=== PATIENT | male | born 1950 | race Caucasian/White ===

== ENCOUNTER 2018-02-15 05:13 | Inpatient (IN) | payer MEDICARE, OTHER ==
[~2018-02-15] VITALS: Ht 172.7 cm; Wt 114.4 kg
[~2018-02-15 05:13] MED LIST: ALLERGY10 MG PO; ASCO500; NAPR220 PO; Nifedical Xl30 MG PO
[2018-02-15 05:59] LABS: BASOPHILS ABSOLUTE AUTO 0.05 K/mm3 (0.00-0.23); BASOPHILS PERCENT AUTO 1 % (0-2); EOSINOPHILS ABSOLUTE AUTO 0.19 K/mm3 (0.00-0.68); EOSINOPHILS PERCENT AUTO 2 % (0-6); Hematocrit 45.8 % (37.0-53.0); Hemoglobin 15.2 g/dL (13.5-17.5); IMMATURE GRAN ABSOLUTE AUTO 0.07 K/mm3 (0.00-0.10); IMMATURE GRAN PERCENT AUTO 1 % (0-1); LYMPHOCYTES ABSOLUTE AUTO 2.18 K/mm3 (0.84-5.20); LYMPHOCYTES PERCENT AUTO 20 % (21-46); MONOCYTES ABSOLUTE AUTO 0.96 K/mm3 (0.16-1.47); MONOCYTES PERCENT AUTO 9 % (4-13); Mean Corpuscular HGB 29.6 pg (26.0-34.0); Mean Corpuscular HGB Conc 33.2 g/dL (31.5-36.5); Mean Corpuscular Volume 89 fL (80-100); Mean Platelet Volume 10.3 fL (9.1-12.4); NEUTROPHILS ABSOLUTE AUTO 7.62 K/mm3 (1.96-9.15); NEUTROPHILS PERCENT AUTO 69 % (41-73); Platelet Count 227 K/mm3 (150-400); RDW Standard Deviation 42.5 fL (35.1-46.3); Red Blood Cell Count 5.13 M/mm3 (4.30-5.90); White Blood Cell Count 11.07 K/mm3 (4.00-11.30)
[2018-02-15 06:19] LABS: Alanine Aminotransfer (ALT/SGP 35 U/L (12-78); Albumin, Blood 3.5 g/dL (3.4-5.0); Albumin/Globulin Ratio 0.9 (0.8-1.8); Alk Phos 58 U/L (50-136); Anion Gap 9 mmol/L (6-16); Aspartate Aminotrans (AST/SGOT 22 U/L (12-37); Bilirubin, Total 0.8 mg/dL (0.1-1.0); Blood Urea Nitrogen 14 mg/dL (8-24); Bun/Creatinine Ratio 17.4 (12.0-20.0); CO2, Blood 26 mmol/L (21-32); Calcium, Blood 9.5 mg/dL (8.5-10.1); Chloride, Blood 106 mmol/L (98-108); Globulin, Blood 4.1 g/dL (2.2-4.0); Glomerular Filtration Rate >60 (60-); Glucose, Blood 109 mg/dL (70-99); Potassium, Blood 4.2 mmol/L (3.5-5.5); Sodium, Blood 141 mmol/L (136-145); Total Protein, Blood 7.6 g/dL (6.4-8.2); Troponin I <0.015 ng/mL (0.000-0.040)
[2018-02-15 09:44] LABS: International Normalized Ratio 1.14; Prothrombin Time Results 11.7 Sec (9.7-11.5)
[2018-02-15 10:30] LABS: International Normalized Ratio 1.11; Prothrombin Time Results 11.4 Sec (9.7-11.5)
[2018-02-16 03:44] LABS: BASOPHILS ABSOLUTE AUTO 0.06 K/mm3 (0.00-0.23); BASOPHILS PERCENT AUTO 1 % (0-2); EOSINOPHILS ABSOLUTE AUTO 0.28 K/mm3 (0.00-0.68); EOSINOPHILS PERCENT AUTO 3 % (0-6); Hematocrit 42.4 % (37.0-53.0); Hemoglobin 13.7 g/dL (13.5-17.5); IMMATURE GRAN ABSOLUTE AUTO 0.05 K/mm3 (0.00-0.10); IMMATURE GRAN PERCENT AUTO 1 % (0-1); LYMPHOCYTES ABSOLUTE AUTO 2.54 K/mm3 (0.84-5.20); LYMPHOCYTES PERCENT AUTO 24 % (21-46); MONOCYTES ABSOLUTE AUTO 1.03 K/mm3 (0.16-1.47); MONOCYTES PERCENT AUTO 10 % (4-13); Mean Corpuscular HGB 29.9 pg (26.0-34.0); Mean Corpuscular HGB Conc 32.3 g/dL (31.5-36.5); Mean Platelet Volume 10.5 fL (9.1-12.4); NEUTROPHILS ABSOLUTE AUTO 6.75 K/mm3 (1.96-9.15); NEUTROPHILS PERCENT AUTO 63 % (41-73); Platelet Count 226 K/mm3 (150-400); RDW Coefficient Variation 13.3 % (11.7-14.2); RDW Standard Deviation 45.5 fL (35.1-46.3); Red Blood Cell Count 4.58 M/mm3 (4.30-5.90); White Blood Cell Count 10.71 K/mm3 (4.00-11.30)
[2018-02-16 03:46] LABS: Mean Corpuscular Volume 93 fL (80-100)
[2018-02-16 04:09] LABS: Magnesium, Blood 2.1 mg/dL (1.6-2.4)
[2018-02-16 04:10] LABS: Alanine Aminotransfer (ALT/SGP 28 U/L (12-78); Albumin/Globulin Ratio 0.8 (0.8-1.8); Alk Phos 52 U/L (50-136); Anion Gap 6 mmol/L (6-16); Aspartate Aminotrans (AST/SGOT 18 U/L (12-37); Bilirubin, Total 0.7 mg/dL (0.1-1.0); Blood Urea Nitrogen 15 mg/dL (8-24); Bun/Creatinine Ratio 15.6 (12.0-20.0); CHOL/HDL RATIO 4.2; CO2, Blood 29 mmol/L (21-32); Calcium, Blood 8.8 mg/dL (8.5-10.1); Chloride, Blood 103 mmol/L (98-108); Cholesterol 164 mg/dL (50-200); Creatinine, Blood 0.96 mg/dL (0.60-1.20); Globulin, Blood 3.9 g/dL (2.2-4.0); Glomerular Filtration Rate >60 (60-); Glucose, Blood 113 mg/dL (70-99); HDL Cholesterol 39 mg/dL (>39); LDL/HDL RATIO 2.6; Low Density Lipoprotein Chol 102 mg/dL (0-110); Potassium, Blood 4.6 mmol/L (3.5-5.5); Sodium, Blood 138 mmol/L (136-145); Total Protein, Blood 6.9 g/dL (6.4-8.2); Triglycerides 116 mg/dL (30-160); Very Low Density Lipoprot Chol 23 mg/dL (6-32)
[2018-02-17 04:20] LABS: BASOPHILS ABSOLUTE AUTO 0.05 K/mm3 (0.00-0.23); BASOPHILS PERCENT AUTO 1 % (0-2); EOSINOPHILS ABSOLUTE AUTO 0.24 K/mm3 (0.00-0.68); EOSINOPHILS PERCENT AUTO 2 % (0-6); Hematocrit 42.2 % (37.0-53.0); Hemoglobin 13.7 g/dL (13.5-17.5); IMMATURE GRAN ABSOLUTE AUTO 0.06 K/mm3 (0.00-0.10); IMMATURE GRAN PERCENT AUTO 1 % (0-1); LYMPHOCYTES ABSOLUTE AUTO 2.22 K/mm3 (0.84-5.20); LYMPHOCYTES PERCENT AUTO 21 % (21-46); MONOCYTES PERCENT AUTO 10 % (4-13); Mean Corpuscular HGB 29.3 pg (26.0-34.0); Mean Corpuscular HGB Conc 32.5 g/dL (31.5-36.5); Mean Platelet Volume 10.2 fL (9.1-12.4); NEUTROPHILS ABSOLUTE AUTO 6.84 K/mm3 (1.96-9.15); NEUTROPHILS PERCENT AUTO 66 % (41-73); Platelet Count 228 K/mm3 (150-400); RDW Coefficient Variation 13.2 % (11.7-14.2); RDW Standard Deviation 43.6 fL (35.1-46.3); Red Blood Cell Count 4.67 M/mm3 (4.30-5.90); White Blood Cell Count 10.41 K/mm3 (4.00-11.30)
[2018-02-17 04:26] LABS: Mean Corpuscular Volume 90 fL (80-100)
[2018-02-18 04:41] LABS: BASOPHILS ABSOLUTE AUTO 0.03 K/mm3 (0.00-0.23); BASOPHILS PERCENT AUTO 0 % (0-2); EOSINOPHILS PERCENT AUTO 3 % (0-6); Hematocrit 44.1 % (37.0-53.0); Hemoglobin 14.4 g/dL (13.5-17.5); IMMATURE GRAN ABSOLUTE AUTO 0.05 K/mm3 (0.00-0.10); IMMATURE GRAN PERCENT AUTO 1 % (0-1); LYMPHOCYTES ABSOLUTE AUTO 1.78 K/mm3 (0.84-5.20); LYMPHOCYTES PERCENT AUTO 18 % (21-46); MONOCYTES ABSOLUTE AUTO 0.95 K/mm3 (0.16-1.47); MONOCYTES PERCENT AUTO 10 % (4-13); Mean Corpuscular HGB 29.2 pg (26.0-34.0); Mean Corpuscular HGB Conc 32.7 g/dL (31.5-36.5); Mean Corpuscular Volume 90 fL (80-100); Mean Platelet Volume 10.1 fL (9.1-12.4); NEUTROPHILS ABSOLUTE AUTO 6.63 K/mm3 (1.96-9.15); NEUTROPHILS PERCENT AUTO 68 % (41-73); Platelet Count 264 K/mm3 (150-400); RDW Coefficient Variation 12.9 % (11.7-14.2); RDW Standard Deviation 42.4 fL (35.1-46.3); Red Blood Cell Count 4.93 M/mm3 (4.30-5.90); White Blood Cell Count 9.74 K/mm3 (4.00-11.30)
[2018-02-18 05:04] LABS: Alanine Aminotransfer (ALT/SGP 25 U/L (12-78); Albumin, Blood 2.9 g/dL (3.4-5.0); Albumin/Globulin Ratio 0.6 (0.8-1.8); Alk Phos 55 U/L (50-136); Anion Gap 8 mmol/L (6-16); Aspartate Aminotrans (AST/SGOT 19 U/L (12-37); Bilirubin, Total 0.9 mg/dL (0.1-1.0); Blood Urea Nitrogen 14 mg/dL (8-24); Bun/Creatinine Ratio 16.3 (12.0-20.0); CO2, Blood 27 mmol/L (21-32); Calcium, Blood 9.4 mg/dL (8.5-10.1); Chloride, Blood 101 mmol/L (98-108); Creatinine, Blood 0.86 mg/dL (0.60-1.20); Globulin, Blood 4.8 g/dL (2.2-4.0); Glomerular Filtration Rate >60 (60-); Glucose, Blood 105 mg/dL (70-99); Potassium, Blood 4.5 mmol/L (3.5-5.5); Sodium, Blood 136 mmol/L (136-145); Total Protein, Blood 7.7 g/dL (6.4-8.2)
[2018-02-19] MEDS ORDERED: LIDO700A20 TOP (09:49)
[2018-02-19] MEDS ORDERED: LOSA25 PO (09:50)
[2018-02-19] MEDS ORDERED: TYLENOL325 MG PO (09:51)
[2018-02-19] MEDS ORDERED: XARELTO15 MG PO (09:51)
== END 2018-02-19 10:38 | disposition home or self-care (01) | DRG 299 ==
LOC: ER 05:13 → PCU 09:07
PROVIDERS: Emergency Medicine; Internal Medicine
DX: I82.432 Acute embolism and thrombosis of left popliteal vein (principal); I26.92 Saddle embolus of pulmonary artery without acute cor pulmonale; I10 Essential (primary) hypertension; M17.11 Unilateral primary osteoarthritis, right knee; Z74.09 Other reduced mobility; E66.9 Obesity, unspecified; Z68.38 Body mass index [BMI] 38.0-38.9, adult
CPT/HCPCS: 36415; 71046; 71260; 80053; 80061; 83690; 83735; 84443; 84484; 85025; 85610; 85730; 93005; 93010; 93306; 93970; 94762; 96374; 96375; 96376; 97110; 97161; 97165; 97530; 97535; 99285-25; G8978; G8979; G8980; G8987; G8988; G8989; J1644; J1885; J2405; J3010; Q9967

== ENCOUNTER 2019-03-16 06:49 | Day surgery (SDC) | payer MEDICARE, OTHER ==
[~2019-03-16] VITALS: Ht 167.6 cm; Wt 120.0 kg
[~2019-03-16 06:49] MED LIST changes: +AMLO10 PO; +ASPI325 PO; +B-125000 MC1 PO; +LIDO700A20 TOP; +LOSA25 PO; +METO25 PO; +NIFEDICAL XL PO; +TYLENOL325 MG PO; +VENTOLIN HFA INH; +XARELTO15 MG PO
[2019-03-16] MEDS ORDERED: METO25 PO (09:41)
[2019-03-16] MEDS ORDERED: ATOR40TA PO (09:41)
--- NOTE | 2019-03-16 12:19 | NUR ---
PT DISCHARGE INSTRUCTIONS GONE OVER WITH PT. PT VERBALIZED UNDERSTANDING ALONG WITH . PT DISCHARGED PER W/C TO PRIVATE VEHICLE.
== END 2019-03-16 12:15 | disposition home or self-care (01) ==
LOC: MHTC 06:49
DX: I25.118 Atherosclerotic heart disease of native coronary artery with other forms of angina pectoris (principal); I10 Essential (primary) hypertension; M19.90 Unspecified osteoarthritis, unspecified site; I77.819 Aortic ectasia, unspecified site
CPT/HCPCS: 85347; 93458; 99152; 99153; C1769; C1894; J1644; J2250; J3010; J7030; Q9967

== ENCOUNTER 2019-05-17 08:31 | Emergency (ER) | payer MEDICARE, OTHER ==
[~2019-05-17] VITALS: Ht 172.7 cm; Wt 114.3 kg
[~2019-05-17 08:31] MED LIST changes: +ATOR40TA PO
== END 2019-05-17 10:39 | disposition home or self-care (01) ==
LOC: ER 08:31
DX: M96.842 Postprocedural seroma of a musculoskeletal structure following a musculoskeletal system procedure (principal); I10 Essential (primary) hypertension; Z86.718 Personal history of other venous thrombosis and embolism; Z86.711 Personal history of pulmonary embolism; Z79.899 Other long term (current) drug therapy; Z79.82 Long term (current) use of aspirin
CPT/HCPCS: 93971; 99283-25

== ENCOUNTER 2020-05-18 09:31 | Emergency (ER) | payer MEDICARE, OTHER ==
[~2020-05-18] VITALS: Ht 172.7 cm; Wt 113.4 kg
[2020-05-18] MEDS ORDERED: EVOLOCUMAB (10:19)
[2020-05-18] MEDS ORDERED: Aspir 8181 MG PO (10:20)
== END 2020-05-18 13:35 | disposition home or self-care (01) ==
LOC: ER 09:31
DX: M25.561 Pain in right knee (principal); I10 Essential (primary) hypertension; Z79.82 Long term (current) use of aspirin; Z79.899 Other long term (current) drug therapy; Z86.711 Personal history of pulmonary embolism; Z95.1 Presence of aortocoronary bypass graft; Z86.718 Personal history of other venous thrombosis and embolism
CPT/HCPCS: 73562-RT; 93971; 99284-25

== ENCOUNTER → 2020-07-09 | Outpatient (CLI) | payer MEDICARE, OTHER ==
[~2020-07-09] MED LIST changes: +Aspir 8181 MG PO; +EVOLOCUMAB
== END | disposition home or self-care (01) ==
LOC: PLD 14:18 → LAB SHORT 14:18
DX: D48.5 Neoplasm of uncertain behavior of skin (principal)
CPT/HCPCS: 88305

== ENCOUNTER 2021-07-20 06:26 | Observation (INO) | payer MEDICARE, OTHER ==
[~2021-07-20] VITALS: Ht 172.7 cm; Wt 116.3 kg
[~2021-07-20 06:26] MED LIST changes: +ADALAT CC30 M1 PO; +METO100ER PO; -NIFEDICAL XL PO
[2021-07-20 07:00] LABS: BASOPHILS ABSOLUTE AUTO 0.07 K/mm3 (0.00-0.23); BASOPHILS PERCENT AUTO 1 % (0-2); EOSINOPHILS ABSOLUTE AUTO 0.26 K/mm3 (0.00-0.68); EOSINOPHILS PERCENT AUTO 3 % (0-6); Hematocrit 45.5 % (37.0-53.0); Hemoglobin 15.4 g/dL (13.5-17.5); IMMATURE GRAN ABSOLUTE AUTO 0.03 K/mm3 (0.00-0.10); IMMATURE GRAN PERCENT AUTO 0 % (0-1); LYMPHOCYTES ABSOLUTE AUTO 1.86 K/mm3 (0.84-5.20); LYMPHOCYTES PERCENT AUTO 19 % (21-46); MONOCYTES ABSOLUTE AUTO 0.79 K/mm3 (0.16-1.47); MONOCYTES PERCENT AUTO 8 % (4-13); Mean Corpuscular HGB 30.3 pg (26.0-34.0); Mean Corpuscular HGB Conc 33.8 g/dL (31.5-36.5); Mean Corpuscular Volume 90 fL (80-100); Mean Platelet Volume 10.8 fL (9.1-12.4); NEUTROPHILS ABSOLUTE AUTO 6.77 K/mm3 (1.96-9.15); NEUTROPHILS PERCENT AUTO 69 % (41-73); Platelet Count 207 K/mm3 (150-400); RDW Standard Deviation 42.8 fL (35.1-46.3); Red Blood Cell Count 5.08 M/mm3 (4.30-5.90); White Blood Cell Count 9.78 K/mm3 (4.00-11.30)
[2021-07-20] MEDS ORDERED: DOCU100 PO (07:07)
[2021-07-20] MEDS ORDERED: NITR.4SL SL (07:08)
[2021-07-20] MEDS ORDERED: Isosorbide Mono30 MG PO (07:08)
[2021-07-20] MEDS ORDERED: PANT40 PO (07:08)
[2021-07-20 07:28] LABS: Alanine Aminotransfer (ALT/SGP 31 U/L (12-78); Albumin, Blood 3.7 g/dL (3.4-5.0); Albumin/Globulin Ratio 0.9 (0.8-1.8); Alk Phos 52 U/L (50-136); Anion Gap 6 mmol/L (6-16); Aspartate Aminotrans (AST/SGOT 25 U/L (12-37); Bilirubin, Total 0.9 mg/dL (0.1-1.0); Blood Urea Nitrogen 14 mg/dL (8-24); Bun/Creatinine Ratio 16.9 (12.0-20.0); CO2, Blood 27 mmol/L (21-32); Calcium, Blood 9.7 mg/dL (8.5-10.1); Chloride, Blood 106 mmol/L (98-108); Creatinine, Blood 0.83 mg/dL (0.60-1.20); Glomerular Filtration Rate >60 (60-); Glucose, Blood 119 mg/dL (70-99); Potassium, Blood 4.2 mmol/L (3.5-5.5); Sodium, Blood 139 mmol/L (136-145); Total Protein, Blood 7.7 g/dL (6.4-8.2); Troponin I <0.015 ng/mL (0.000-0.040)
--- NOTE | 2021-07-20 16:00 | NUR ---
SHIFT SUMMARY THE PATIENT WAS ADMITTED AT 1145 THIS SHIFT. THE PATIENT IS ALERT AND ORIENTED X4, PLEASANT AND COOPERATIVE WITH CARE. THE PATIENT IS ON RA. ON TELE RUNNING SINUS RHYTHM IN THE 80'S. THE PATIENT IS ON A CLEAR LIQUID DIET. 20GAUGE IV IN LEFT AC. MEDS WHOLE WITH WATER. PLAN IS FOR PATIENT TO POSSIBLY HAVE A STRESS TEST DONE. VSS. NO CHEST PAIN AT THIS TIME. WILL CONTINUE TO CARE FOR THE PATIENT UNTIL SHIFT REPORT IS GIVEN TO ONCOMING NURSE.
--- NOTE | 2021-07-21 06:30 | NUR ---
SHIFT SUMMRAY PT IS A 71 Y/O MALE, ADMITTED FOR CP. HE IS A&O X 4, INDEPENDENT IN THE ROOM. PT DENIED ANY C/O CHEST PAIN OR PRESSURE, NAUSEA OR SOB. VITAL SIGNS STABLE. TELE SHOWED NSR C PVC @ 95. NO ACUTE CHANGES IN PT CONDITION NOTED DURING THE NIGHT. WILL CONTINUE TO MONITOR AND TREAT PER EMAR UNTIL HAND OFF TO DAY SHIFT RN.
[2021-07-21 08:55] LABS: CHOL/HDL RATIO 3.1; Cholesterol 132 mg/dL (50-200); HDL Cholesterol 43 mg/dL (>39); LDL/HDL RATIO 1.5; Low Density Lipoprotein Chol 64 mg/dL (0-110); Triglycerides 127 mg/dL (30-160); Very Low Density Lipoprot Chol 25 mg/dL (6-32)
--- NOTE | 2021-07-21 17:16 | NUR ---
SHIFT SUMMARY PATIENT IS ALERT AND ORIENTED X4, PLEASANT AND COOPERATIVE WITH CARE. THE PATIENT HAD THE FIRST PART OF THE STRESS TEST DONE TODAY. THE SECOND PART WILL TAKE PLACE TOMORROW AFTERNOON. NO CAFFEINE AFTER DINNER. HOLD LUNCH TRAY UNTIL AFTER TEST. PATIENT'S ISOSOBRIDE WILL BE HELD IN THE AM DUE TO TEST. PATIENT IS INDEPENDENT IN THE ROOM. NO ACUTE CHANGES THIS SHIFT. CALL LIGHT WITHIN REACH.
--- NOTE | 2021-07-22 06:55 | NUR ---
SHIFT SUMMARY PT IS A 71 Y/O MALE, ADMITTED FOR CHEST PAIN. HE IS A&O X 4, INDEPENDENT IN THE ROOM. NO C/O CHEST PAIN, NAUSEA OR SOB. VITAL SIGNS STABLE. TELE SHOWED NSR C PVC @ 80. NO ACUTE CHANGES IN PT CONDITION NOTED DURING THE NIGHT. WILL CONTINUE TO MONITOR AND TREAT PER EMAR UNTIL HAND OFF TO DAY SHIFT RN.
[2021-07-22] MEDS ORDERED: REPATHA SU140 MG/1 M SC (17:28)
[2021-07-22] MEDS ORDERED: PANT40 PO (18:05)
--- NOTE | 2021-07-22 18:38 | NUR ---
PT GIVEN DC INSTRUCTIONS. STRESS TEST NEGATIVE- AWAITING RIDE HOME [id number] REPORT TO JOSE RAMIREZ.
== END 2021-07-22 19:04 | disposition home or self-care (01) ==
LOC: ER 06:26 → MEDS 06:27
PROVIDERS: Emergency Medicine; Internal Medicine; ADMIT Internal Medicine
DX: R07.89 Other chest pain (principal); I10 Essential (primary) hypertension; I25.10 Atherosclerotic heart disease of native coronary artery without angina pectoris; E66.01 Morbid (severe) obesity due to excess calories; E88.81 Metabolic syndrome and other insulin resistance; K21.9 Gastro-esophageal reflux disease without esophagitis; K76.0 Fatty (change of) liver, not elsewhere classified; K80.20 Calculus of gallbladder without cholecystitis without obstruction; Z79.82 Long term (current) use of aspirin; Z86.718 Personal history of other venous thrombosis and embolism; Z86.711 Personal history of pulmonary embolism; Z95.1 Presence of aortocoronary bypass graft; Z68.38 Body mass index [BMI] 38.0-38.9, adult
CPT/HCPCS: 36415; 71045; 76705; 78452; 80053; 80061; 83036; 83880; 84484; 85025; 85379; 93005; 93010; 93017; 93970; 96372; 99285-25; A9270; A9500; G0378; J0706; J1650; J2785

== ENCOUNTER 2022-05-14 07:22 | Day surgery (SDC) | payer MEDICARE, OTHER ==
[~2022-05-14] VITALS: Ht 172.7 cm; Wt 115.1 kg
[~2022-05-14 07:22] MED LIST changes: +DOCU100 PO; +Isosorbide Mono30 MG PO; +NITR.4SL SL; +PANT40 PO; +REPATHA SU140 MG/1 M SC
--- NOTE | 2022-05-14 10:43 | NUR ---
05/14/22 [email or web address] [place] CONFIRMED PT'S TRAMADOL PERSCRIPTION HAD BEEN SENT THERE. PT WAS INFORMED.
== END 2022-05-14 10:15 | disposition home or self-care (01) ==
LOC: ORSCSDS 07:22
PROVIDERS: Orthopaedic Surgery
PROC: 01N50ZZ Release Median Nerve, Open Approach (ICD-10-PCS; principal; 2022-05-14 08:45)
DX: G56.01 Carpal tunnel syndrome, right upper limb (principal); I10 Essential (primary) hypertension; I25.2 Old myocardial infarction; I25.10 Atherosclerotic heart disease of native coronary artery without angina pectoris; G47.33 Obstructive sleep apnea (adult) (pediatric); Z79.82 Long term (current) use of aspirin
CPT/HCPCS: J2250; J3010; J7120

== ENCOUNTER 2023-03-20 07:13 | Day surgery (SDC) | payer MEDICARE, OTHER | END 2023-03-20 22:50 | disposition home or self-care (01) | LOC: CT 07:13 | DX: I25.118 Atherosclerotic heart disease of native coronary artery with other forms of angina pectoris (principal); Z95.1 Presence of aortocoronary bypass graft; I71.21 Aneurysm of the ascending aorta, without rupture; R06.00 Dyspnea, unspecified | CPT/HCPCS: 75574; Q9967 ==

== ENCOUNTER 2023-12-24 06:01 | Emergency (ER) | payer OTHER ==
[~2023-12-24] VITALS: Ht 172.7 cm; Wt 117.9 kg
[2023-12-24] MEDS ORDERED: NIFE30ER PO (06:34)
[2023-12-24] MEDS ORDERED: ISOSORBIDE MONO30 MG PO (06:36)
[2023-12-24] MEDS ORDERED: PANTOPRAZOLE SO40 M2 PO (06:36)
[2023-12-24] MEDS ORDERED: FUROSEMIDE20 MG PO (06:36)
[2023-12-24] MEDS ORDERED: MELO7.5 PO (06:37)
[2023-12-24] MEDS ORDERED: CARVEDILOL25 M9 PO (06:37)
[2023-12-24] MEDS ORDERED: Cyclobenzaprine5 MG PO (06:38)
[2023-12-24] MEDS ORDERED: K-Dur10 MEQ (06:39)
[2023-12-24] MEDS ORDERED: METO2.5 PO (06:39)
[2023-12-24 06:43] LABS: BASOPHILS ABSOLUTE AUTO 0.07 K/mm3 (0.00-0.23); BASOPHILS PERCENT AUTO 1 % (0-2); EOSINOPHILS ABSOLUTE AUTO 0.13 K/mm3 (0.00-0.68); EOSINOPHILS PERCENT AUTO 1 % (0-6); Hematocrit 44.6 % (37.0-53.0); Hemoglobin 15.4 g/dL (13.5-17.5); IMMATURE GRAN ABSOLUTE AUTO 0.06 K/mm3 (0.00-0.10); IMMATURE GRAN PERCENT AUTO 1 % (0-1); LYMPHOCYTES ABSOLUTE AUTO 1.54 K/mm3 (0.84-5.20); LYMPHOCYTES PERCENT AUTO 14 % (21-46); MONOCYTES ABSOLUTE AUTO 0.66 K/mm3 (0.16-1.47); MONOCYTES PERCENT AUTO 6 % (4-13); Mean Corpuscular HGB 30.2 pg (26.0-34.0); Mean Corpuscular HGB Conc 34.5 g/dL (31.5-36.5); Mean Corpuscular Volume 88 fL (80-100); Mean Platelet Volume 10.7 fL (9.1-12.4); NEUTROPHILS ABSOLUTE AUTO 8.97 K/mm3 (1.96-9.15); NEUTROPHILS PERCENT AUTO 79 % (41-73); Platelet Count 221 K/mm3 (150-400); RDW Coefficient Variation 12.9 % (11.7-14.2); RDW Standard Deviation 41.3 fL (35.1-46.3); White Blood Cell Count 11.43 K/mm3 (4.00-11.30)
[2023-12-24 06:58] LABS: Albumin, Blood 3.8 g/dL (3.4-5.0); Bilirubin, Total 0.5 mg/dL (0.1-1.0); Bun/Creatinine Ratio 19.7 (12.0-20.0); Calcium, Blood 10.5 mg/dL (8.5-10.1); Creatinine, Blood 0.81 mg/dL (0.60-1.20); Potassium, Blood 2.7 mmol/L (3.5-5.5); Total Protein, Blood 7.8 g/dL (6.4-8.2)
[2023-12-24] MEDS ORDERED: Potassium Chloride 20 MEQ TabCR PO ONE (07:15)
[2023-12-24] MEDS ORDERED: Ondansetron 4 MG SoluTab SL ONE (07:30)
[2023-12-24] MEDS ORDERED: NS 1,000 ML IV SCH (07:30)
[2023-12-24 07:39] LABS: Source, Urine Voided
[2023-12-24 07:43] LABS: Appearance, Urine Clear (Clear); Bilirubin, Urine Neg (Neg); Blood, Urine Neg (Neg); Color, Urine Yellow (P-Yellow); Glucose Qualitative, Urine Neg (Neg); Ketones, Urine Neg (Neg); Leukocyte Esterase, Urine Neg (Neg); Nitrite, Urine Neg (Neg); Protein, Urine Neg (Neg); Urobilinogen, Urine NORM (Normal)
[2023-12-24] MEDS ORDERED: Ondansetron 4 MG SoluTab MM ONE (09:00)
[2023-12-24 09:04] VITALS: BP 132/78
[2023-12-24] MEDS ORDERED: ONDA4ODT MM (09:08)
== END 2023-12-24 09:28 | disposition home or self-care (01) ==
LOC: ER 06:01
PROVIDERS: Family Medicine
DX: K80.70 Calculus of gallbladder and bile duct without cholecystitis without obstruction (principal); E87.6 Hypokalemia; I10 Essential (primary) hypertension; K21.9 Gastro-esophageal reflux disease without esophagitis; Z88.8 Allergy status to other drugs, medicaments and biological substances; Z88.5 Allergy status to narcotic agent; Z79.899 Other long term (current) drug therapy; Z79.82 Long term (current) use of aspirin
CPT/HCPCS: 76705; 80053; 81003; 83690; 84484; 85025; 93005; 93010; 99284-25; A9270; J7030

== ENCOUNTER 2023-12-26 09:55 | Inpatient (IN) | payer OTHER ==
[2023-12-26] VITALS (15 sets, daily range): BP systolic 91–113; BP diastolic 58–68
[~2023-12-26] VITALS: Ht 172.7 cm; Wt 117.9 kg
[~2023-12-26 09:55] MED LIST changes: +CARVEDILOL25 M9 PO; +Cyclobenzaprine5 MG PO; +FUROSEMIDE20 MG PO; +ISOSORBIDE MONO30 MG PO; +K-Dur10 MEQ; +MELO7.5 PO; +METO2.5 PO; +NIFE30ER PO; +ONDA4ODT MM; +PANTOPRAZOLE SO40 M2 PO
[2023-12-26 10:55] LABS: BASOPHILS ABSOLUTE AUTO 0.08 K/mm3 (0.00-0.23); BASOPHILS PERCENT AUTO 0 % (0-2); EOSINOPHILS PERCENT AUTO 0 % (0-6); Hematocrit 39.9 % (37.0-53.0); Hemoglobin 13.7 g/dL (13.5-17.5); IMMATURE GRAN ABSOLUTE AUTO 0.19 K/mm3 (0.00-0.10); IMMATURE GRAN PERCENT AUTO 1 % (0-1); LYMPHOCYTES ABSOLUTE AUTO 1.42 K/mm3 (0.84-5.20); LYMPHOCYTES PERCENT AUTO 7 % (21-46); MONOCYTES PERCENT AUTO 8 % (4-13); Mean Corpuscular HGB 30.4 pg (26.0-34.0); Mean Corpuscular HGB Conc 34.3 g/dL (31.5-36.5); Mean Corpuscular Volume 89 fL (80-100); Mean Platelet Volume 10.8 fL (9.1-12.4); NEUTROPHILS PERCENT AUTO 85 % (41-73); Platelet Count 187 K/mm3 (150-400); RDW Coefficient Variation 12.8 % (11.7-14.2); RDW Standard Deviation 42.1 fL (35.1-46.3); Red Blood Cell Count 4.51 M/mm3 (4.30-5.90); White Blood Cell Count 21.99 K/mm3 (4.00-11.30)
[2023-12-26] MEDS ORDERED: Morphine Sulfate 4 MG/1 ML Injection IV ONE (11:10)
[2023-12-26 11:13] LABS: Albumin, Blood 3.1 g/dL (3.4-5.0); Albumin/Globulin Ratio 0.7 (0.8-1.8); Bilirubin, Total 1.3 mg/dL (0.1-1.0); Bun/Creatinine Ratio 18.6 (12.0-20.0); Calcium, Blood 9.4 mg/dL (8.5-10.1); Creatinine, Blood 1.13 mg/dL (0.60-1.20); Globulin, Blood 4.2 g/dL (2.2-4.0); Potassium, Blood 3.1 mmol/L (3.5-5.5); Total Protein, Blood 7.3 g/dL (6.4-8.2)
[2023-12-26] MEDS ORDERED: Piperacillin/Tazobactam Sod 4.5 GM in NS 100 ML IV ONE (12:25)
[2023-12-26] MEDS ORDERED: Lactated Ringer's 1,000 ML IV ONE (13:50)
[2023-12-26] MEDS ORDERED: FentaNYL Citrate 50 MCG/ML 2 ML Injection IV PRN (13:50)
[2023-12-26] MEDS ORDERED: Cyclobenzaprine HCl 10 MG Tab PO PRN (13:50)
[2023-12-26] MEDS ORDERED: Ondansetron HCl 2 MG / ML 2ML Vial IV PRN (13:50)
[2023-12-26] MEDS ORDERED: Acetaminophen 325 MG TABLET PO PRN (13:50)
[2023-12-26] MEDS ORDERED: NS 1,000 ML IV SCH (13:50)
[2023-12-26] MEDS ORDERED: Nitroglycerin 0.4 MG SUBL SL PRN (13:55)
[2023-12-26] MEDS ORDERED: Ondansetron 4 MG SoluTab MM PRN (13:55)
[2023-12-26] MEDS ORDERED: Potassium Chloride 40 MEQ in NS 250 ML IV ONE (14:05)
[2023-12-26] MEDS ORDERED: Bupivacaine 0.5% HCl 5 MG/ML 30MLVIAL ONE (14:31)
[2023-12-26] MEDS ORDERED: Dexamethasone Sod Phos 10 MG/ML 1ML VIAL ONE (14:39)
[2023-12-26] MEDS ORDERED: Ondansetron HCl 2 MG / ML 2ML Vial ONE (14:39)
[2023-12-26] MEDS ORDERED: propofoL 20 ML IV ONE (14:39)
[2023-12-26] MEDS ORDERED: Rocuronium Bromide 10 MG/ML 5ML Injection IV ONE (14:39)
[2023-12-26] MEDS ORDERED: FentaNYL Citrate 50 MCG/ML 2 ML Injection ONE (14:40)
[2023-12-26] MEDS ORDERED: Sugammadex Sodium 200 MG/2ML SDV (100 MG/ML) ONE (15:08)
[2023-12-26] MEDS ORDERED: Morphine Sulfate 4 MG/1 ML Injection ONE ×2 (16:21→16:31)
[2023-12-26] MEDS ORDERED: Piperacillin/Tazobactam Sod 3.375 GM in NS 100 ML IV SCH (18:00)
--- NOTE | 2023-12-26 19:14 | NUR ---
SHIFT SUMMARY S/P LAP ENMA, LAP SITES, MARYBETH WITH RED BLOOD DC. A&OX4, VSS/RA, DANA PO CLD, VOIDING, REPOSITIONS SELF, DENIES PAIN, IVF/ABX AND KCL PER EMAR. WILL REPORT TO ONCOMING NOC RN.
[2023-12-26] MEDS ORDERED: Pantoprazole Sodium 40 MG Tab PO SCH (21:00)
[2023-12-26] MEDS ORDERED: Carvedilol 25 MG Tab PO SCH (21:00)
[2023-12-26] MEDS ORDERED: Meloxicam 7.5 MG Tab PO SCH (21:00)
[2023-12-26] MEDS ORDERED: Lactobacil 2-S.Thermo-Bifido 1 1 Cap PO SCH (21:00)
[2023-12-27 03:33] VITALS: BP 113/68
--- NOTE | 2023-12-27 04:21 | NUR ---
SHIFT SUMMARY POD1 ENMA, PT VOIDING APPROPRIATELY, MEDICATED FOR PAIN PRN W/ GOOD RESULTS, ABLE TO REST MOST OF SHIFT. STANDBY ASST AT BEDSIDE W/ URINAL. FLUIDS RUNNING AT ORDERED RATE, IV ABX GIVEN ORDERED. MARYBETH DRAIN IN PLACE DRAINING SANGUINEOUS FLUID. PT USING CALL LIGHT APPROPRIATELY.
[2023-12-27 05:19] LABS: BASOPHILS ABSOLUTE AUTO 0.02 K/mm3 (0.00-0.23); BASOPHILS PERCENT AUTO 0 % (0-2); EOSINOPHILS PERCENT AUTO 0 % (0-6); Hematocrit 35.9 % (37.0-53.0); Hemoglobin 12.3 g/dL (13.5-17.5); IMMATURE GRAN ABSOLUTE AUTO 0.17 K/mm3 (0.00-0.10); IMMATURE GRAN PERCENT AUTO 1 % (0-1); LYMPHOCYTES ABSOLUTE AUTO 0.94 K/mm3 (0.84-5.20); LYMPHOCYTES PERCENT AUTO 5 % (21-46); MONOCYTES ABSOLUTE AUTO 1.18 K/mm3 (0.16-1.47); MONOCYTES PERCENT AUTO 7 % (4-13); Mean Corpuscular HGB 30.4 pg (26.0-34.0); Mean Corpuscular HGB Conc 34.3 g/dL (31.5-36.5); Mean Corpuscular Volume 89 fL (80-100); NEUTROPHILS ABSOLUTE AUTO 15.11 K/mm3 (1.96-9.15); NEUTROPHILS PERCENT AUTO 87 % (41-73); Platelet Count 189 K/mm3 (150-400); RDW Coefficient Variation 12.6 % (11.7-14.2); RDW Standard Deviation 40.9 fL (35.1-46.3); Red Blood Cell Count 4.05 M/mm3 (4.30-5.90); White Blood Cell Count 17.42 K/mm3 (4.00-11.30)
[2023-12-27 05:46] LABS: Albumin, Blood 2.7 g/dL (3.4-5.0); Albumin/Globulin Ratio 0.7 (0.8-1.8); Bilirubin, Total 0.7 mg/dL (0.1-1.0); Bun/Creatinine Ratio 20.8 (12.0-20.0); Calcium, Blood 8.9 mg/dL (8.5-10.1); Creatinine, Blood 1.01 mg/dL (0.60-1.20); Potassium, Blood 3.3 mmol/L (3.5-5.5); Total Protein, Blood 6.7 g/dL (6.4-8.2)
[2023-12-27 07:31] VITALS: BP 120/68
[2023-12-27] MEDS ORDERED: OxyCODONE HCL 5 MG TAB PO PRN (08:55)
[2023-12-27] MEDS ORDERED: Isosorbide Mononitrate 60 MG TABCR PO SCH (09:00)
[2023-12-27] MEDS ORDERED: Enoxaparin 40 MG/0.4 ML SYR SC SCH (09:00)
[2023-12-27] MEDS ORDERED: Potassium Chloride 20 MEQ TabCR PO ONE ×2 (09:00→13:30)
[2023-12-27] MEDS ORDERED: NIFEdipine 30 MG TabCR PO SCH (09:00)
[2023-12-27] MEDS ORDERED: Aspirin 81 MG TabEC PO SCH (09:00)
[2023-12-27] MEDS ORDERED: HYDROcodone 5-APAP 325 TAB PO PRN (09:05)
[2023-12-27 14:33] VITALS: BP 100/59
--- NOTE | 2023-12-27 17:01 | NUR ---
SHIFT SUMMARY S/P LAP ENMA, LAP SITES, MARYBETH SSD, DENIES FLATUS/BM. A&OX4, VSS/RA, DANA PO REG DIET, VOIDING, AMB INDEPENDENTLY/DRESSED SELF, DENIES PAIN, IVF/ABX PER EMAR. WILL REPORT TO ONCOMING NOC RN.
[2023-12-27] MEDS ORDERED: NS 250 ML IV PRN (18:50)
[2023-12-27 19:29] VITALS: BP 109/68
[2023-12-28 04:33] LABS: BASOPHILS ABSOLUTE AUTO 0.04 K/mm3 (0.00-0.23); BASOPHILS PERCENT AUTO 0 % (0-2); EOSINOPHILS ABSOLUTE AUTO 0.01 K/mm3 (0.00-0.68); EOSINOPHILS PERCENT AUTO 0 % (0-6); Hematocrit 38.6 % (37.0-53.0); Hemoglobin 13.1 g/dL (13.5-17.5); IMMATURE GRAN ABSOLUTE AUTO 0.09 K/mm3 (0.00-0.10); IMMATURE GRAN PERCENT AUTO 1 % (0-1); LYMPHOCYTES ABSOLUTE AUTO 1.73 K/mm3 (0.84-5.20); LYMPHOCYTES PERCENT AUTO 11 % (21-46); MONOCYTES ABSOLUTE AUTO 1.12 K/mm3 (0.16-1.47); MONOCYTES PERCENT AUTO 7 % (4-13); Mean Corpuscular HGB 30.5 pg (26.0-34.0); Mean Corpuscular HGB Conc 33.9 g/dL (31.5-36.5); Mean Corpuscular Volume 90 fL (80-100); Mean Platelet Volume 10.7 fL (9.1-12.4); NEUTROPHILS ABSOLUTE AUTO 13.38 K/mm3 (1.96-9.15); NEUTROPHILS PERCENT AUTO 82 % (41-73); Platelet Count 227 K/mm3 (150-400); RDW Coefficient Variation 12.9 % (11.7-14.2); RDW Standard Deviation 42.4 fL (35.1-46.3); Red Blood Cell Count 4.29 M/mm3 (4.30-5.90); White Blood Cell Count 16.37 K/mm3 (4.00-11.30)
[2023-12-28 04:34] VITALS: BP 111/71
[2023-12-28 04:54] LABS: Albumin, Blood 2.7 g/dL (3.4-5.0); Albumin/Globulin Ratio 0.6 (0.8-1.8); Bilirubin, Total 0.4 mg/dL (0.1-1.0); Bun/Creatinine Ratio 27.1 (12.0-20.0); Calcium, Blood 9.7 mg/dL (8.5-10.1); Creatinine, Blood 0.85 mg/dL (0.60-1.20); Globulin, Blood 4.3 g/dL (2.2-4.0); Potassium, Blood 3.6 mmol/L (3.5-5.5)
--- NOTE | 2023-12-28 05:11 | NUR ---
SHIFT SUMMARY PT IS POD2 FOR A ENMA W/ DR. PUENTE. IND IN ROOM, VOIDING, PASSING GAS. NO COMPLAINTS OF PAIN THIS SHIFT. AMBULATING HALLWAYS INDEPENDENTLY. LAP SITES C/D/I. MARYBETH DRAIN DRAINING SEROSANG FLUID. LACTIC LEVELS IN NORMAL RANGE THIS AM. PLAN TO D/C TODAY. PT USING CALL LIGHT APPROPRIATELY.
[2023-12-28 07:14] VITALS: BP 120/81
--- NOTE | 2023-12-28 10:29 | NUR ---
DISCHARGE POD 2 LAP ENMA PT REPORTS PAIN TOLERABLE DURING SHIFT, PASSING FLATUS. TOLERATING DIET, NO NAUSEA. MARYBETH DRAIN REMOVED THIS AM BY DR. PUENTE. SMALL AMOUNT SEROUS DRAINAGE. DRESSING CHANGED AND REINFORCED. ALL INSTRUCTIONS GONE OVER WITH PATIENT, ALL QUESTIONS ANSWERED. TAKEN OUT VIA WHEELCHAIR.
== END 2023-12-28 10:26 | disposition home or self-care (01) | DRG 853 ==
LOC: ER 09:55 → SURS 13:53
PROVIDERS: Emergency Medicine; Surgery; ADMIT Internal Medicine
PROC: 3E03329 Introduction of Other Anti-infective into Peripheral Vein, Percutaneous Approach (ICD-10-PCS; 2023-12-26)
PROC: 0FT44ZZ Resection of Gallbladder, Percutaneous Endoscopic Approach (ICD-10-PCS; principal; 2023-12-26 09:30)
DX: A41.9 Sepsis, unspecified organism (principal); J95.821 Acute postprocedural respiratory failure; E87.20 Acidosis, unspecified; E87.1 Hypo-osmolality and hyponatremia; K80.00 Calculus of gallbladder with acute cholecystitis without obstruction; R65.20 Severe sepsis without septic shock; E87.6 Hypokalemia; G47.33 Obstructive sleep apnea (adult) (pediatric); J44.9 Chronic obstructive pulmonary disease, unspecified; I25.10 Atherosclerotic heart disease of native coronary artery without angina pectoris; Z95.1 Presence of aortocoronary bypass graft; I10 Essential (primary) hypertension; K21.9 Gastro-esophageal reflux disease without esophagitis; E78.5 Hyperlipidemia, unspecified; M19.90 Unspecified osteoarthritis, unspecified site; E66.9 Obesity, unspecified; K76.0 Fatty (change of) liver, not elsewhere classified; T88.59XA Other complications of anesthesia, initial encounter; Z79.82 Long term (current) use of aspirin; Z79.899 Other long term (current) drug therapy; Z86.711 Personal history of pulmonary embolism; Z98.890 Other specified postprocedural states; Z88.8 Allergy status to other drugs, medicaments and biological substances; Z86.79 Personal history of other diseases of the circulatory system; Z86.718 Personal history of other venous thrombosis and embolism; Z68.39 Body mass index [BMI] 39.0-39.9, adult; K80.70 Calculus of gallbladder and bile duct without cholecystitis without obstruction
CPT/HCPCS: 36415; 76705; 80053; 81003; 83605; 83690; 83735; 84484; 85025; 88304; 93005; 93010; 94762; 96374; 96375; 99284-25; 99285-25; A9270; J1100; J1650; J2270; J2405; J2543; J2704; J3010; J3480; J7030; J7050; J7120